=== PATIENT | female | born 1995 | race Caucasian/White ===

== ENCOUNTER 2017-03-21 13:07 | Emergency (ER) | payer OTHER ==
[2017-03-21 13:23] VITALS: BP 112/78; PULSE 74; TEMP 97.9; BMI 22.8
--- NOTE | 2017-03-21 14:04 | PDOC ---
History of Present Illness - General Chief Complaint: Eye Problem Stated Complaint: EYE PROBLEM Time Seen by Provider: 03/21/17 13:48 History Source: Patient Exam Limitations: No Limitations - History of Present Illness Initial Comments: 03/21/17 13:52 pain and swelling to right eye with redness. 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 States woke up this morning with redness and mild swelling. Denies visual changes, states is increasing tears but does not see any purulent drainage. No other history of illness recently 03/21/17 14:09 Timing/Duration: unsure Severity: mild, moderate Associated Symptoms: reports: denies symptoms. denies: cough, fever/chills, headaches, loss of appetite, malaise Past History - Travel Traveled outside of the country in the last 30 days: No Close contact w/someone who was outside of country & ill: No - Past Medical History Allergies/Adverse Reactions: Allergies Allergy/AdvReac Type Severity Reaction Status Date / Time No Known Allergies Allergy Verified 03/21/17 13:23 Home Medications: Ambulatory Orders Tobramycin 0.3% Ophth Soln [Tobrex Ophthalmic Solution -] 2 drop OS QID #1 drops 03/21/17 Asthma: No Cancer: No Cardiac Disorders: No COPD: No Diabetes: No HTN: No Seizures: No Thyroid Disease: No - Immunization History Immunization Up to Date: Yes - Suicide/Smoking/Psychosocial Hx Smoking Status: No Smoking History: Never smoked Have you smoked in the past 12 months: No Number of Cigarettes Smoked Daily: 0 Information on smoking cessation initiated: No Hx Alcohol Use: No Drug/Substance Use Hx: No Substance Use Type: None Hx Substance Use Treatment: No Review of Systems - Review of Systems Able to Perform ROS?: Yes Is the patient limited Citizen Of [place] proficient: Yes Constitutional: Yes: Symptoms Reported, See HPI, Malaise. No: Fever HEENTM: Yes: Symptoms Reported, See HPI, Eye Pain, Blurred Vision, Tearing Respiratory: Yes: See HPI. No: Symptoms reported, Cough Musculoskeletal: No: Symptoms Reported Integumentary: Yes: See HPI. No: Symptoms Reported Neurological: Yes: Symptoms reported All Other Systems: Reviewed and Negative *Physical Exam - Vital Signs Last Vital Signs Temp Pulse Resp BP Pulse Ox 97.9 F 74 18 112/78 100 03/21/17 13:21 03/21/17 13:21 03/21/17 13:21 03/21/17 13:21 03/21/17 13:21 - Physical Exam General Appearance: Yes: Nourished, Appropriately Dressed, Apparent Distress HEENT: positive: TMs Normal, Nasal Congestion, Rhinorrhea, Other (injected right eye, with mild swelling to the lid. Conjunctiva is beefy red. Left eye unaffected. Visual acuity within normal limits). negative: Sinus Tenderness Neck: positive: Tender, Supple. negative: Lymphadenopathy (R), Lymphadenopathy (L) Respiratory/Chest: positive: Lungs Clear, Normal Breath Sounds Cardiovascular: positive: Regular Rate Gastrointestinal/Abdominal: positive: Normal Bowel Sounds, Soft Musculoskeletal: positive: Normal Inspection Extremity: positive: Normal Capillary Refill, Normal Range of Motion Integumentary: positive: Normal Color, Dry, Warm, Pale Neurologic: positive: [employer] w[employer] consultant II-XII NML intact, Fully Oriented, Alert, Normal Mood/ Affect, Normal Response, Motor Strength 5/5 Medical Decision Making - Medical Decision Making 03/21/17 14:11 Conjunctivitis, will treat with tobramycin drops *DC/Admit/Observation/Transfer Diagnosis at time of Disposition: Acute conjunctivitis, right eye Qualifiers: Acute conjunctivitis type: bacterial Qualified Code(s): H10.31 - Unspecified acute conjunctivitis, right eye - Discharge Dispostion Disposition: HOME Condition at time of disposition: Stable Admit: No - Referrals - Patient Instructions Printed Discharge Instructions: DI for Conjunctivitis Additional Instructions: Rest, avoid rubbing eyes Wash hands frequently as this is very contagious Wash hands, use eye drops as directed, wash hands after use Do not share eyedrops with other person to may become infected as this will infect them Avoid contact with others until redness and discharge is gone from eyes. Followup with ophthalmology or private physician as needed - Post Discharge Activity Forms/Work/School Notes: Back to Work
[2017-03-21] MEDS ORDERED: TOBRAMYCIN 0.3% OPHTH SOLN 5 ML BOTTLE OD ONE (14:05)
[2017-03-21] MEDS ORDERED: TOBRAMYCIN 0.3% OPHTH SOLN 5 ML BOTTLE ONE (14:26)
== END 2017-03-21 14:33 | disposition home or self-care (01) ==
LOC: JERFT 13:07
DX: H10.31 Unspecified acute conjunctivitis, right eye (principal)
CPT/HCPCS: 99281-25

== ENCOUNTER 2017-03-29 20:29 | Emergency (ER) | payer OTHER ==
[2017-03-29 20:36] VITALS: BP 118/66; PULSE 97; TEMP 99.1; BMI 23.3
[2017-03-29] MEDS ORDERED: ACETAMINOPHEN 325 MG TABLET (FP) PO ONE (20:36)
--- NOTE | 2017-03-29 20:39 | PDOC ---
Rapid Medical Evaluation Chief Complaint: Nausea/Vomiting Time Seen by Provider: 03/29/17 20:33 Medical Evaluation: Allergies Allergy/AdvReac Type Severity Reaction Status Date / Time No Known Allergies Allergy Verified 03/21/17 13:23 21 year old with nausea and vomiting x 2 days with throat pain and headache. PE: patient alert ox3. mild pharyngeal erythema + cervical lymphadenopathy/ Plan : rapid strep patient to the Ed for further management of care. 03/29/17 20:56
[2017-03-29 20:54] LABS: URINE APPEARANCE CLEAR; URINE BILIRUBIN NEGATIVE (NEGATIVE); URINE BLOOD 1+ (NEGATIVE); URINE COLOR YELLOW; URINE GLUCOSE (UA) NEGATIVE (NEGATIVE); URINE KETONE 1+ (NEGATIVE); URINE LEUK ESTERASE NEGATIVE (NEGATIVE); URINE NITRITE NEGATIVE (NEGATIVE); URINE PROTEIN NEGATIVE (NEGATIVE); URINE UROBILINOGEN NEGATIVE mg/dL (0.2-1.0)
[2017-03-29 21:03] LABS: URINE MUCUS RARE; URINE RBC 1 /hpf (0-3); URINE WBC 2 /hpf (3-5)
--- NOTE | 2017-03-29 21:07 | PDOC ---
History of Present Illness <Tosha Rueda - Last Filed: 03/29/17 21:15> - General History Source: Patient Exam Limitations: No Limitations - History of Present Illness Initial Comments: 03/29/17 21:25 The patient is a 21 year old female, with a significant past medical history of , who presents to the emergency department with, sore throat, fever, chills, and nausea for four days. The patient reports secondary to her symptoms she has a decreased appetite. She denies cough, ear pain, congestion, or runny nose. She denies recent headache or dizziness. She denies recent vomit, diarrhea or constipation. She denies recent chest pain or shortness of breath. Allergies: NKA Past surgical history: None reported. Social history: Nonsmoker. Denies EtOH use and recreational drug use. <Kavita Roldan - Last Filed: 03/29/17 21:25> - General Chief Complaint: Cold Symptoms Stated Complaint: COLD SYMPTOMS Time Seen by Provider: 03/29/17 20:33 Past History - Past Medical History Asthma: No Cancer: No Cardiac Disorders: No COPD: No Diabetes: No HTN: No Seizures: No Thyroid Disease: No - Immunization History Immunization Up to Date: Yes - Suicide/Smoking/Psychosocial Hx Smoking Status: No Smoking History: Never smoked Have you smoked in the past 12 months: No Number of Cigarettes Smoked Daily: 0 Hx Alcohol Use: No Drug/Substance Use Hx: No Substance Use Type: None Hx Substance Use Treatment: No <Tosha Rueda - Last Filed: 03/29/17 21:15> <Kavita Roldan - Last Filed: 03/29/17 21:25> - Past Medical History Allergies/Adverse Reactions: Allergies Allergy/AdvReac Type Severity Reaction Status Date / Time No Known Allergies Allergy Verified 03/29/17 20:34 Home Medications: Ambulatory Orders Amoxicillin - [Amoxicillin 500mg Capsule -] 500 mg PO BID #13 capsule 03/29/17 Ibuprofen 800 mg PO TID #30 tablet 03/29/17 Ondansetron [Zofran Odt -] 4 mg SL TID #10 od.tablet 03/29/17 Review of Systems - Review of Systems Able to Perform ROS?: Yes Comments:: 03/29/17 21:25 CONSTITUTIONAL: Present: +Fever, +Chills Absent: no fatigue EYES: Absent: visual changes ENT: Present: +Sore throat Absent: ear pain CARDIOVASCULAR: Absent: chest pain, no palpitations RESPIRATORY: Absent: cough, no SOB GI: Present: +Nausea Absent: abdominal pain, no vomiting, no constipation, no diarrhea GENITOURINARY: Absent: dysuria, no frequency, no hematuria MUSKULOSKELETAL: Absent: back pain, no arthralgia, no myalgia SKIN: Absent: rash NEURO: Absent: headache All Other Systems: Reviewed and Negative <Kavita Roldan - Last Filed: 03/29/17 21:25> *Physical Exam - Vital Signs Last Vital Signs Temp Pulse Resp BP Pulse Ox 99.1 F 97 H 18 118/66 99 03/29/17 20:34 03/29/17 20:34 03/29/17 20:34 03/29/17 20:34 03/29/17 20:34 <Tosha Rueda - Last Filed: 03/29/17 21:15> - Vital Signs Last Vital Signs Temp Pulse Resp BP Pulse Ox 99.1 F 97 H 18 118/66 99 03/29/17 20:34 03/29/17 20:34 03/29/17 20:34 03/29/17 20:34 03/29/17 20:34 - Physical Exam Comments: 03/29/17 21:25 GENERAL: Well-appearing, well-nourished. No apparent distress. HEENT: +Posterior tonsular errythema without exudate. Normal tympanic membranes bilaterally. Normocephalic, atraumatic. PERRL, EOM intact. NECK: +Right cervical lymphadenopathy. CARDIOVASCULAR: Normal S1, S2. Regular rate and rhythm. PULMONARY: Clear to auscultation bilaterally. ABDOMEN: Soft, non-distended, non-tender. EXTREMITIES: Normal ROM in all four extremities. No gross deformities. SKIN: Warm, dry. No rash NEUROLOGICAL: No focal neurological deficits. <Kavita Roldan - Last Filed: 03/29/17 21:25> ED Treatment Course - ADDITIONAL ORDERS Additional order review: Laboratory Results 03/29/17 20:40 Urine Color Yellow Urine Appearance Clear Urine pH 5.0 Ur Specific [place] 1.020 Urine Protein Negative Urine Glucose (UA) Negative Urine Ketones 1+ H Urine Blood 1+ H Urine Nitrite Negative Urine Bilirubin Negative Urine Urobilinogen Negative Urine WBC (Auto) 2 Urine RBC (Auto) 1 Ur Epithelial Cells Rare Urine Mucus Rare Urine HCG, Qual Negative <Tosha Rueda - Last Filed: 03/29/17 21:15> - ADDITIONAL ORDERS Additional order review: Laboratory Results 03/29/17 20:40 Urine Color Yellow Urine Appearance Clear Urine pH 5.0 Ur Specific [place] 1.020 Urine Protein Negative Urine Glucose (UA) Negative Urine Ketones 1+ H Urine Blood 1+ H Urine Nitrite Negative Urine Bilirubin Negative Urine Urobilinogen Negative Urine WBC (Auto) 2 Urine RBC (Auto) 1 Ur Epithelial Cells Rare Urine Mucus Rare Urine HCG, Qual Negative 03/29/17 20:40 Group A Strep Rapid Antigen - Final Throat <Kavita Roldan - Last Filed: 03/29/17 21:25> Medical Decision Making - Medical Decision Making 03/29/17 21:15 Pt. evaluated in E and strep test was obtained. (+) Strep test per lab. Will treat with amoxicillin at this time and d/c home. VSS, afebrile. Will also give symptomatic treatment, zofran and ibuprofen. <Tosha Rueda - Last Filed: 03/29/17 21:15> *DC/Admit/Observation/Transfer - Discharge Dispostion Admit: No <Tosha Rueda - Last Filed: 03/29/17 21:15> - Attestations Scribe Attestion: 03/29/17 21:25 Documentation prepared by Kavita Roldan, acting as medical review coordinator for Javier Akhtar MD. <Kavita Roldan - Last Filed: 03/29/17 21:25> Diagnosis at time of Disposition: Strep pharyngitis - Discharge Dispostion Disposition: HOME Condition at time of disposition: Stable - Prescriptions Prescriptions: Amoxicillin - [Amoxicillin 500mg Capsule -] 500 mg PO BID #13 capsule Ibuprofen 800 mg PO TID #30 tablet Ondansetron [Zofran Odt -] 4 mg SL TID #10 od.tablet - Referrals Referrals: Alexis King MD [Staff Physician] - - Patient Instructions Printed Discharge Instructions: DI for Strep Throat Additional Instructions: You have strep throat. This is a bacterial infection. You were prescribed amoxicillin. Please take this medication twice a day for one week. Easler away her toothbrush after treatment. You may take ibuprofen 800 mg 3 times a day as needed for pain. Please do not exceed taking 3000 mg a day. You may also take Zofran as needed for nausea. Warm tea and cough drops may help her throat feel better as well. Please follow-up with your primary care doctor in 1 week. Return to the emergency department if you have difficulty swallowing, worsening pain, increased drooling, changes in your voice, or any changes in your symptoms.
[2017-03-29] MEDS ORDERED: AMOXICILLIN 250 MG CAPSULE ONE (21:18)
[2017-03-29] MEDS ORDERED: AMOXICILLIN 500 MG CAPSULE (FP) PO ONE (21:19)
[2017-03-29 22:37] LABS: URINE LEUK ESTERASE Negative (NEGATIVE)
== END 2017-03-29 21:31 | disposition home or self-care (01) ==
LOC: JERFT 20:29 → JER 20:29 → JERFT 21:31
DX: J02.0 Streptococcal pharyngitis (principal); B95.0 Streptococcus, group A, as the cause of diseases classified elsewhere
CPT/HCPCS: 81003; 81015; 84703; 87070; 87430; 99281-25

== ENCOUNTER → 2018-08-31 | Emergency (ER) | payer OTHER | END | disposition home or self-care (01) | LOC: JERFT 18:52 ==

== ENCOUNTER 2018-11-05 16:36 | Emergency (ER) | payer OTHER | END 2018-11-05 18:57 | disposition home or self-care (01) | LOC: JER 16:36 ==

== ENCOUNTER 2021-02-28 13:04 | Emergency (ER) | payer OTHER ==
[2021-02-28 13:08] VITALS: BP 130/90; PULSE 92; TEMP 97.9; BMI 24.1
[2021-02-28] MEDS ORDERED: METHOCARBAMOL 500 MG TABLET PO ONE (13:51)
[2021-02-28] MEDS ORDERED: METHOCARBAMOL 500 MG TABLET ONE (13:52)
== END 2021-02-28 14:00 | disposition home or self-care (01) ==
LOC: JER 13:04 → JERFT 13:04
DX: M54.9 Dorsalgia, unspecified (principal); V89.2XXA Person injured in unspecified motor-vehicle accident, traffic, initial encounter; Y92.9 Unspecified place or not applicable
CPT/HCPCS: 99283-25

== ENCOUNTER 2024-04-16 01:22 | Emergency (ER) | payer OTHER ==
[2024-04-16 01:32] VITALS: BP 118/91; PULSE 72; RESP 16; TEMP 98.2; BMI 25.3
[2024-04-16] MEDS ORDERED: FAMOTIDINE 20 MG/50 ML IVPB 20 MG/50 ML MG IVPB ONE (02:39)
[2024-04-16] MEDS ORDERED: ACETAMINOPHEN INJECTION 100 ML ONE (02:39)
[2024-04-16] MEDS: ACETAMINOPHEN 1000 MG/100 ML BAG IVPB ONE (02:56)
[2024-04-16] MEDS: FAMOTIDINE 20 MG/50 ML IVPB 20 MG/50 ML MG IVPB ONE (02:56)
[2024-04-16 03:03] LABS: BASO % 0.4 % (0-2.0); EOS % 0.8 % (0-4.5); HEMATOCRIT 39.8 % (32.4-45.2); HEMOGLOBIN 13.5 GM/dL (10.7-15.3); LYMPH % 23.1 % (8-40); MCH 29.5 pg (25.7-33.7); MEAN CELL VOLUME 86.8 fl (80-96); MEAN PLT VOLUME 7.9 fl (7.5-11.1); MONO % 5.6 % (3.8-10.2); NEUT % 70.1 % (42.8-82.8); PLATELET COUNT 302 10^3/uL (134-434); RBC 4.58 M/mm3 (3.60-5.2); RDW 13.3 % (11.6-15.6); WHITE BLOOD COUNT 7.4 K/mm3 (4.0-10.0)
[2024-04-16 03:17] LABS: POTASSIUM 3.8 mmol/L (3.5-5.1)
[2024-04-16 03:19] LABS: CALCIUM 9.1 mg/dL (8.5-10.1)
[2024-04-16 03:20] LABS: ALBUMIN 4.2 g/dl (3.4-5.0)
[2024-04-16 03:23] LABS: CREATININE 0.5 mg/dL (0.55-1.3)
[2024-04-16 03:25] LABS: BILIRUBIN,TOTAL 0.3 mg/dL (0.2-1); TOT PROT 7.9 g/dl (6.4-8.2)
== END 2024-04-16 04:27 | disposition home or self-care (01) ==
LOC: JER 01:22
PROC: 3E033GC Introduction of Other Therapeutic Substance into Peripheral Vein, Percutaneous Approach (ICD-10-PCS; principal; 2024-04-16)
PROC: 3E033NZ Introduction of Analgesics, Hypnotics, Sedatives into Peripheral Vein, Percutaneous Approach (ICD-10-PCS; 2024-04-16)
DX: R10.13 Epigastric pain (principal); Z20.822 Contact with and (suspected) exposure to COVID-19
CPT/HCPCS: 0241U-QW; 36415; 80053; 83690; 84703; 85025; 99284-25; J0131